=== PATIENT | female | born 1965 | race American Indian/Alaskan Native ===

== ENCOUNTER 2021-04-18 11:36 | Emergency (ER) | payer BC ==
--- NOTE | 2021-04-18 13:49 | XRay Report ---
CHEST 2 VIEWS INDICATION: COUGH. COMPARISON: None. FINDINGS: Support devices: None. Heart: Within normal limits. Lungs/Pleura: This would atelectasis along the superior aspect of the right hilum. No localized infil trate. No significant pleural effusion. IMPRESSION: Mild discoid atelectasis along the superior aspect of the right hilum. Signer Name: Jer Mirza MD Signed: 04/18/2021 1:45 PM Workstation Name: [id number]
[2021-04-18] MEDS ORDERED: ALBUTEROL 2.5 MG/3 ML NEBU IH ONE (13:50)
[2021-04-18] MEDS ORDERED: predniSONE 20 MG TAB PO ONE (13:50)
--- NOTE | 2021-04-18 13:50 | Emergency Department Report ---
Minor Respiratory - HPI Chief Complaint: Upper Respiratory Infection Stated Complaint: FLU SYMPTOMS Time Seen by Provider: 04/18/21 13:45 Duration: 2 Days Pain Location: Chest Severity: mild Minor Respiratory: Yes Able to Tolerate Fluids, Yes Cough, No Rhinorrhea, No Sore Throat, No Ear Pain, No Sick Contacts, No Hemoptysis, No Chest Pain, No Shortness of Breath, No Fever Other History: 55 YO COMES TO ER WITH COUGH AND WHEEZING X 2 DAYS. HX ASTHMA. CURRENT SMOKER. NO CP. NO SOB X W WHEEZING ONLY. NO FEVER OR CHILLS. NON ILL NON TOXIC ON EXAM. OUT OF HER ASTHMA MEDS. CAROLYN PCP ED Review of Systems ROS: Stated complaint: FLU SYMPTOMS Other details as noted in HPI Comment: All other systems reviewed and negative ED Past Medical Hx - Past Medical History Previous Medical History?: Yes Hx Hypertension: Yes Hx Asthma: Yes - Surgical History Past Surgical History?: Yes Additional Surgical History: Left hip - Family History Family history: no significant - Social History Smoking Status: Current Some Day Smoker Substance Use Type: Alcohol - Medications Home Medications: Home Medications Medication Instructions Recorded Confirmed Last Taken Type Albuterol Mdi (or & Nicu Only) 2 puff IH QID PRN #1 inhalation 04/18/21 Unknown Rx [ProAir HFA Inhaler] Cetirizine HCl [ZyrTEC] 10 mg PO DAILY #30 capsule 04/18/21 Unknown Rx Fluticasone [Flonase] 1 spray NS QDAY #1 bottle 04/18/21 Unknown Rx predniSONE [Deltasone] 20 mg PO DAILY #5 tablet 04/18/21 Unknown Rx Minor Respiratory Exam - Exam General: Vital signs noted. No distress. Alert and acting appropriately. HEENT: Yes Moist Mucous Membranes, No Pharyngeal Erythema, No Pharyngeal Exudates, No Rhinorrhea, No Conjuctival Injection, No Frontal Tenderness, No Maxillary Tenderness Ear: Neither TM Bulge, Neither TM Erythema, Neither EAC Pain, Neither EAC Discharge Neck: Yes Supple, No Adenopathy Lungs: Yes Good Air Exchange, Yes Wheezes, No Ronchi, No Stridor, No Cough, No Labored Respirations, No Retractions, No Use of Accessory Muscles, No Other Abnormal Lung Sounds Heart: Yes Regular, No Murmur Abdomen: Yes Normal Bowel Sounds, No Tenderness, No Peritoneal Signs Skin: No Rash, No Edema Neurologic: Alert and oriented, no deficits. Musculoskeletal: Unremarkable. ED Course Vital Signs 04/18/21 13:18 Temperature 98.3 F Pulse Rate 72 Respiratory 16 Rate Blood Pressure 132/82 O2 Sat by Pulse 97 Oximetry - Reevaluation(s) Reevaluation #1: 04/18/21 SAT 100% ON PROVIDER EXAM -ON ROOM AIR ED Medical Decision Making - Radiology Data Radiology results: report reviewed, image reviewed nap - Medical Decision Making XRAY NOTED DUONEB AND SOLUMEDROL WITH RESOLUTION OF WHEEZING AMBULATORY WITH SAT 100 ON ROOMAIR PT BEING DC HOME WITH DC PLAN OF CARE INCLUDING MEDS, REFERRAL FOR FOLLOW UP, SMOKING CESSATION INSTRUCTIONS. PT VERBALIZES UNDERSTANDING OF DC PLAN OF CARE. Vital Signs 04/18/21 13:18 Temperature 98.3 F Pulse Rate 72 Respiratory 16 Rate Blood Pressure 132/82 O2 Sat by Pulse 97 Oximetry - Differential Diagnosis RO PNA/COVID/ASTHMA AE Critical care attestation.: If time is entered above; I have spent that time in minutes in the direct care of this critically ill patient, excluding procedure time. ED Disposition Clinical Impression: Asthma with acute exacerbation Qualifiers: Asthma severity: mild Asthma persistence: intermittent Qualified Code(s): J45.21 - Mild intermittent asthma with (acute) exacerbation Disposition: DC-01 TO HOME OR SELFCARE Is pt being admited?: No Does the pt Need Aspirin: No Condition: Stable Instructions: Asthma, Adult Additional Instructions: meds as ordered today follow up with pcp next week referral below stay well hydrated with water Prescriptions: predniSONE [Deltasone] 20 mg PO DAILY #5 tablet Fluticasone [Flonase] 1 spray NS QDAY #1 bottle Albuterol Mdi (or & Nicu Only) [ProAir HFA Inhaler] 2 puff IH QID PRN #1 inhalation PRN Reason: Shortness Of Breath Cetirizine HCl [ZyrTEC] 10 mg PO DAILY #30 capsule Referrals: PRIMARY CAREMD [Primary Care Provider] - 3-5 Days NATHAN CUELLAR MD [Staff Physician] - 3-5 Days Time of Disposition: 14:04
[2021-04-18 16:15] VITALS: BP 127/88
== END 2021-04-18 16:13 | disposition home or self-care (01) ==
LOC: ED 11:36
DX: J45.901 Unspecified asthma with (acute) exacerbation (principal); I10 Essential (primary) hypertension; F17.200 Nicotine dependence, unspecified, uncomplicated; Z98.890 Other specified postprocedural states; Z79.899 Other long term (current) drug therapy
CPT/HCPCS: 71046; 94640; 99283; J7512; 94644